=== PATIENT | female | born 1960 | race Caucasian/White ===

== ENCOUNTER 2018-03-30 17:08 | Outpatient (CLI) | payer OTHER ==
[2016-02-01 12:43] VITALS: BMI 24.2
== END 2018-03-30 17:09 | disposition home or self-care (01) ==
LOC: LAB 17:08
PROVIDERS: ATTEND Physician Assistant
DX: R63.4 Abnormal weight loss (principal)
CPT/HCPCS: 36415; 80053; 84439; 84443; 85025

== ENCOUNTER 2018-04-03 17:19 | Outpatient (CLI) | payer OTHER ==
[2016-02-01 12:43] VITALS: BMI 24.2
== END 2018-04-03 17:20 | disposition home or self-care (01) ==
LOC: NONPT 17:19
PROVIDERS: ATTEND Physician Assistant
DX: R50.9 Fever, unspecified (principal)
CPT/HCPCS: 81001; 87086; 87186

== ENCOUNTER 2018-04-05 07:55 | Outpatient (CLI) | payer OTHER ==
[2016-02-01 12:43] VITALS: BMI 24.2
--- NOTE | 2018-04-05 11:04 | CT ---
EXAM: CT abdomen pelvis without contrast HISTORY: Abnormal weight loss COMPARISON: None TECHNIQUE: Serial axial images of the abdomen pelvis were performed from the lung bases through the inferior pelvis without contrast. These were viewed in multiple planes. FINDINGS: Lung bases demonstrate large pleural plaque which is calcified. There is a calcified nodu le in the right lung base. There is mild hazy ground-glass and bronchiectasis with consolidation and bilateral lung bases. There is consolidation noted in the left lung. Evaluation is limited due to lack of contrast. There is moderate amount of free fluid throughout the abdomen pelvis. The gallbladder is large and distended with peripherally calcified stones. The live r demonstrates numerous scattered low attenuation lesions. The hepatic lesions are poorly evaluated due to lack of contrast. The spleen is upper limit of normal. The kidneys demonstrate bilateral nono bstructing renal stones no greater than 0.3 cm in diameter. The stomach is distended. The pancreas is normal. There is mild hazy ground-glass throughout the abdominal mesentery and fluid extending into the pelvi s. There are indistinct masses within the pelvis which appears separate from each other one in the po sterior left measuring at least 4.4 x 6.4 cm and the other in the anterior right pelvis measuring 6.7 x 6.4 cm. There is minimal free fluid in the pelvis. The osseous structures demonstrate no lytic o r blastic lesion. Pars defects at L5 are present. IMPRESSION: 1. Large masses in the pelvis which appears separate may represent bilateral ovarian cancer. 2. Multiple hepatic low attenuation lesions are concerning for intrahepatic metastases. Intra-abdom inal ascites may be benign versus malignant. Noncontrast evaluation. There is limiting the evaluati on of the omentum, but no discrete mesenteric nodular is identified although vascular congestion is p resent. 3. The gallbladder is severely enlarged with multiple stones and a stone in the gallbladder neck. 4. Bilateral nonobstructing renal stones. 5. Low attenuation consolidations in the lung bases are concerning for lipoid pneumonia.
== END 2018-04-05 07:56 | disposition home or self-care (01) ==
LOC: RAD 07:55
PROVIDERS: ATTEND Physician Assistant
DX: R63.4 Abnormal weight loss (principal)